=== PATIENT | male | born 2000 | race Caucasian/White ===

== ENCOUNTER 2019-06-25 07:16 | Emergency (ER) | payer OTHER ==
--- NOTE | 2019-06-25 07:25 | UC ---
Lower Extremity/Ankle HPI - HPI Summary HPI Summary: negative stripper - c/o stepping on a piece of glass Monday or Monday. States feels like some of it is still in the L foot. last tet - utd. [place] 4[place] day ago not sure if stepped on glass or wood, tried to take out splinter, but to no avail. Pt is a runner. - History of Current Complaint Stated Complaint: LEFT FOOT CONCERN Time Seen by Provider: 06/25/19 07:23 Hx Obtained From: Patient - Allergies/Home Medications Allergies/Adverse Reactions: Allergies Allergy/AdvReac Type Severity Reaction Status Date / Time No Known Allergies Allergy Verified 06/25/19 07:29 PMH/Surg Hx/FS Hx/Imm Hx Previously Healthy: Yes - no dm - Surgical History Surgical History: None - Family History Known Family History: Positive: Diabetes - Social History Substance Use Type: None - Immunization History Vaccination Up to Date: Yes Review of Systems All Other Systems Reviewed And Are Negative: Yes Constitutional: Positive: Negative Skin: Positive: Other - see hpi Eyes: Positive: Negative ENT: Positive: Negative Respiratory: Positive: Negative Cardiovascular: Positive: Negative Gastrointestinal: Positive: Negative Genitourinary: Positive: Negative Motor: Positive: Other - see hpi Neurovascular: Positive: Other - see hpi Musculoskeletal: Positive: Other: - see hpi Neurological: Positive: Other - see hpi Psychological: Positive: Negative Is Patient Immunocompromised?: No Physical Exam Triage Information Reviewed: Yes Appearance: Well-Nourished Vital Signs Reviewed: Yes Eye Exam: Normal ENT Exam: Normal Neck exam: Normal - grossly normal Respiratory Exam: Normal Cardiovascular Exam: Normal Abdominal Exam: Normal Musculoskeletal Exam: Other - L foot - + splinter noted L lat plantar foot. Mild white purulence. No redness / fluctuance. CR good, warm to touch Musculoskeletal: Positive: No Edema Psychological Exam: Normal Skin Exam: Normal - no visible or reported rash Lower Extremity Course/Dx - Course Course Of Treatment: Removed splinter via forceps. Tolerated well. Considered xray, but no d/t removed splinter manually, appeared to be in situ. Pt will let us or pcp know if worse or ongoing problems. Question as posed answered to the best of my ability. - Differential Dx/Diagnosis Provider Diagnosis: Splinter of foot Discharge - Sign-Out/Discharge Documenting (check all that apply): Patient Departure All imaging exams completed and their final reports reviewed: No Studies - Discharge Plan Condition: Stable Disposition: HOME Patient Education Materials: Soft Tissue Foreign Body (ED) Referrals: Darryl Henry [Medical Doctor] - Additional Instructions: 50 /50 bacitracin (over the counter) / clotrimazole cream 1% (over the counter, or athlete's foot cream of your choice) - apply thin layer to affected area twice daily for 3 days. Air dry at night. No astringents. No running today. Be sure to pad the foot for the next week with a large bandage and / or thick sock. No barefoot or flip flop or sandal until healed. Seek medical attention for worse or new problems. - Billing Disposition and Condition Condition: STABLE Disposition: Home
[2019-06-25 07:33] VITALS: BP 151/70
== END 2019-06-25 08:10 | disposition home or self-care (01) ==
LOC: UCCORT 07:16
DX: S90.455A Superficial foreign body, left lesser toe(s), initial encounter (principal); W45.8XXA Other foreign body or object entering through skin, initial encounter; Y93.02 Activity, running; Y92.9 Unspecified place or not applicable
CPT/HCPCS: 99202; G0463